=== PATIENT | male | born 1960 | race Two or more races ===

== ENCOUNTER → 2023-08-18 | Outpatient (CLI) | payer BC ==
[2023-08-18 09:25] LABS: BASOPHILS % 1.2 % (0.0-2.0); EOSINOPHILS % 6.9 % (0.0-5.0); HEMATOCRIT. 44.1 % (42.0-52.0); HEMOGLOBIN. 15.3 g/dL (14.0-18.0); LYMPHOCYTES % 29.8 % (20.0-50.0); MEAN CORPUSCULAR HGB CONC 34.8 g/dL (31.0-37.0); MEAN CORPUSCULAR VOLUME 88.9 fL (80.0-94.0); MEAN PLATELET VOLUME 9.8 fl (7.4-10.4); MONOCYTES % 7.5 % (2.0-8.0); NEUTROPHILS % 54.6 % (40.0-76.0); PLATELET 243 x1000/uL (130-400); RED BLOOD CELL COUNT 4.95 mill/uL (4.7-6.1); RED CELL DISTRIBUTION WIDTH 13.5 % (11.6-14.6); WHITE BLOOD COUNT 7.3 x1000/uL (4.5-11.0)
[2023-08-18 09:33] LABS: CARBON DIOXIDE 30 mEq/L (21-32); CHLORIDE 101 mEq/L (98-107); POTASSIUM 3.3 mEq/L (3.5-5.1); SODIUM 137 mEq/L (136-145)
[2023-08-18 09:34] LABS: CALCIUM 9.7 mg/dL (8.7-10.4)
[2023-08-18 09:38] LABS: CREATININE 0.8 mg/dL (0.6-1.3); GLUCOSE 104 mg/dL (70-105); IRON 90 ug/dL (65-175); URIC ACID 3.2 mg/dL (3.7-9.2)
[2023-08-18 09:39] LABS: TRIGLYCERIDE 117 mg/dL (0-150); UREA NITROGEN BLOOD 17 mg/dL (9-23)
[2023-08-18 09:40] LABS: ALANINE AMINOTRANSFERASE 69 IU/L (10-49); ALBUMIN 4.8 g/dL (3.2-4.8); ASPARTATE AMINOTRANSFERASE 61 IU/L (<34); LDL CHOLESTEROL 78 mg/dL (5-100)
[2023-08-18 09:41] LABS: BILIRUBIN TOTAL 0.9 mg/dL (0.1-1.0); CHOLESTEROL 129 mg/dL (<200); HDL CHOLESTEROL 44 mg/dL (>55); PROTEIN TOTAL 7.4 g/dL (6.0-8.3)
[2023-08-18 09:42] LABS: THYROID STIMULATING HORMONE 1.74 uIU/mL (0.55-4.78)
[2023-08-20 13:07] LABS: PROSTATE SPECIFIC AG TOTAL 6.6 ng/mL (0.0-4.0)
[2023-08-21 04:07] LABS: VITAMIN D 25-OH 28.9 ng/mL (30.0-100.0)
== END | disposition home or self-care (01) ==
LOC: LAB 08:25
DX: Z12.5 Encounter for screening for malignant neoplasm of prostate (principal); Z13.1 Encounter for screening for diabetes mellitus; I10 Essential (primary) hypertension; E78.00 Pure hypercholesterolemia, unspecified; E55.9 Vitamin D deficiency, unspecified; R53.82 Chronic fatigue, unspecified
CPT/HCPCS: 36415; 80053; 80061; 82306; 83036; 83540; 84153; 84443; 84550; 85025